=== PATIENT | female | born 1985 | race Caucasian/White ===

== ENCOUNTER 2017-11-10 15:10 | Emergency (ER) | payer OTHER ==
[~2017-11-10] VITALS: Ht 152.4 cm; Wt 53.5 kg
[~2017-11-10 15:10] MED LIST: PRENATAL VITAM1 EACH PO
== END 2017-11-10 15:33 | disposition home or self-care (01) ==
LOC: ED 15:10
DX: T25.121A Burn of first degree of right foot, initial encounter (principal); T31.0 Burns involving less than 10% of body surface; X19.XXXA Contact with other heat and hot substances, initial encounter

== ENCOUNTER 2018-06-30 10:47 | Emergency (ER) | payer SELFPAY ==
[~2018-06-30] VITALS: Ht 152.4 cm; Wt 53.5 kg
== END 2018-06-30 10:59 | disposition home or self-care (01) ==
LOC: ED 10:47
DX: J02.9 Acute pharyngitis, unspecified (principal); M54.5 Low back pain; R50.9 Fever, unspecified

== ENCOUNTER 2022-01-11 09:11 | Emergency (ER) | payer OTHER ==
[~2022-01-11] VITALS: Ht 152.4 cm; Wt 53.5 kg
[2022-01-11] MEDS ORDERED: ONDANSETRON ODT8 MG PO (10:22)
[2022-01-11] MEDS ORDERED: CEPHALEXIN500 M1 PO (10:22)
[2022-01-11] MEDS ORDERED: HYDROCODON-ACE1 EA11 PO (10:22)
== END 2022-01-11 11:40 | disposition home or self-care (01) ==
LOC: ED 09:11
DX: S67.22XA Crushing injury of left hand, initial encounter (principal); S62.522A Displaced fracture of distal phalanx of left thumb, initial encounter for closed fracture; S61.213A Laceration without foreign body of left middle finger without damage to nail, initial encounter; F17.200 Nicotine dependence, unspecified, uncomplicated; W23.0XXA Caught, crushed, jammed, or pinched between moving objects, initial encounter
CPT/HCPCS: 12002; 73130; 90471; 90715; 99283-25; J0690; J1170; J1885

== ENCOUNTER 2024-04-26 05:53 | Day surgery (SDC) | payer OTHER ==
[~2024-04-26] VITALS: Ht 152.4 cm; Wt 62.7 kg
[~2024-04-26 05:53] MED LIST changes: +CEPHALEXIN500 M1 PO; +HYDROCODON-ACE1 EA11 PO; +LACTATED RINGER'S 1,000 ML IV SCH; +LAMICTAL25 MG PO; +ONDANSETRON ODT8 MG PO; +SEROQUEL100 MG PO
[2024-04-26 06:08] VITALS: BP 116/72
[2024-04-26] MEDS ORDERED: KETOROLAC TROMETHAMINE 30 MG/ML VIAL ONE (06:31)
[2024-04-26] MEDS ORDERED: ROCURONIUM BROMIDE 50 MG/5 ML SYR ONE (06:31)
[2024-04-26] MEDS ORDERED: SUCCINYLCHOLINE IN 0.9% NACL 200 MG/10 ML SYRINGE ONE (06:31)
[2024-04-26] MEDS ORDERED: LIDOCAINE HCL 4% 5 ML AMP ONE (06:31)
[2024-04-26] MEDS ORDERED: METOCLOPRAMIDE HCL 10 MG/2 ML SDV ONE (06:31)
[2024-04-26] MEDS ORDERED: LACTATED RINGER'S 1,000 ML IV ONE ×2 (06:31→09:00)
[2024-04-26] MEDS ORDERED: FAMOTIDINE 20 MG/ 2 ML VIAL ONE (06:31)
[2024-04-26] MEDS ORDERED: ondansetron HCL 4 MG/2 ML VIAL ONE (06:31)
[2024-04-26] MEDS ORDERED: propofoL 200 MG/20 ML VIAL ONE (06:31)
[2024-04-26] MEDS ORDERED: MIDAZOLAM HCL 2 MG/2 ML VIAL ONE (06:31)
[2024-04-26] MEDS ORDERED: fentaNYL citrate 100 MCG/2 ML VIAL ONE (06:31)
[2024-04-26] MEDS ORDERED: SUGAMMADEX SODIUM 200 MG/2 ML ML ONE (06:31)
[2024-04-26] MEDS ORDERED: DEXAMETHASONE SOD PHOS 4 MG/ML VIAL ONE (06:31)
[2024-04-26] MEDS ORDERED: IBLOOD GLUCOSE TEST STRIP 1 EA TEST VI PRN ×2 (07:00→08:30)
[2024-04-26] MEDS ORDERED: LIDOCAINE HCL 1% 5 ML SDV INJ ONE (07:00)
[2024-04-26] MEDS ORDERED: CEFAZOLIN SODIUM 2 GM/20 ML SYR IV SCH (07:00)
[2024-04-26] MEDS ORDERED: droPERidol 5 MG/2 ML VIAL ONE (08:00)
[2024-04-26] MEDS ORDERED: ACETAMINOPHEN 1,000 MG/100 ML VIAL ONE (08:01)
[2024-04-26] MEDS ORDERED: FLUORESCEIN SODIUM 500 MG/5 ML ML ONE (08:05)
[2024-04-26] MEDS ORDERED: KETAMINE in NS 50 MG/5 ML SYR ONE (08:05)
[2024-04-26] MEDS ORDERED: fentaNYL citrate 50 MCG/ML SDV IV PRN (08:30)
[2024-04-26] MEDS ORDERED: METOCLOPRAMIDE HCL 10 MG/2 ML SDV IV PRN ×2 (08:30→10:30)
[2024-04-26] MEDS ORDERED: ondansetron HCL 4 MG/2 ML VIAL IV PRN ×2 (08:30→10:30)
[2024-04-26] MEDS ORDERED: MORPHINE SULFATE 10 MG/ML VIAL IV PRN (08:30)
[2024-04-26] MEDS ORDERED: droPERidol 5 MG/2 ML VIAL IV PRN (08:30)
[2024-04-26] MEDS ORDERED: NALOXONE HCL 0.4 MG SYR IV PRN ×2 (08:30→10:30)
[2024-04-26] MEDS ORDERED: PROCHLORPERAZINE EDISYLATE 10 MG/2 ML VIAL IV PRN (08:30)
[2024-04-26] MEDS ORDERED: MEPERIDINE HCL 25 MG/1 ML VIAL ONE (10:17)
[2024-04-26] MEDS ORDERED: HYDROCODONE/ACETA 5/325 TAB PO PRN (10:30)
[2024-04-26] MEDS ORDERED: MAGNESIUM HYDROXIDE/AL HYDROX 30 ML CUP PO PRN (10:30)
[2024-04-26] MEDS ORDERED: OXYCODONE/APAP 5/325 TAB PO PRN (10:30)
[2024-04-26] MEDS ORDERED: FAMOTIDINE 20 MG TAB PO PRN (10:30)
[2024-04-26] MEDS ORDERED: SIMETHICONE 125 MG TABLET CHEWABLE PO PRN (10:30)
[2024-04-26] MEDS ORDERED: HYDROmorphone HCL 1 MG/ML SYR IV PRN (10:30)
--- NOTE | 2024-04-26 10:53 | NUR ---
04/26/24 1053 Amina De Leon 1013- PT ARRIVES TO THE PACU SHAKING WITH EYED OPENING AND CLOSING OFF AND ON AND MAKING SOME NOISES. THIS RN TRIES TO ORIENT THIS PT TO PACU. BREATHING IS EVEN AND UNLABORED AND PT IS ON 10L OF O2 VIA MASK. ALL MONITORS PUT IN PLACE. ABDOMEN IS SOFT AND NON DISTENEDED. SOME SHADOWING NOTED AT THE 3 SITES TO THE ABDOMEN, AND NO DRAINAGE FROM THE VAGINA. PT IS IN SEMIFOWLERS POSITION. TAXI DRIVER SUPERVISOR GIVES MEDICATION TO PT TO HELP WITH THE SHAKING. BLOOD PRESSUES ARE UNOBTAINABLE AT THIS TIME DO TO SHAKING. WILL CONTINUE TO MONITOR. PT EASILY FALLS BACK TO SLEEP WITH SOME BROW FURROWING NOTED. PT IS UNABLE TO ANSWER WHEN ASKED ABOUT PAIN AND NAUSEA. 1020- VSS. PT HAS STOPPED SHAKING AND IS RESTING WITH EYES CLOSED AND NO APPARENT DISTRESS. 1021- PT IS TURNED DOWN TO 6L OF O2 AND MAINTAINING HIGH 90S. 1038- O2 TURNED OFF AND PT IS MAINTAINING ABOVE 92%. PT IS ORIENTED TO PACU. PT DENIES PAIN AND NAUSEA. PT IS SLIGHTLY CONFUSED AND ASKING WHERE WE ARE. PT EDUCATED ABOUT PROCEDURE AND PLAN OF CARE. WILL CONTINUE TO MONITOR. 1048- PT REPORTS FEELING PAIN IN HER ABDOMEN. WHEN ASKED TO GIVE IT A NUMBER SHE IS UNABLE BUT REPORTS IT "UNCOMFORTABLE".
[2024-04-26 11:15] VITALS: BP 95/61
--- NOTE | 2024-04-26 11:20 | NUR ---
Patient returns to treatment room from PACU. report taken from GABRIELLA Huynh. Patient is still drowsy but wakes easily to verbal stimuli. patient reports some pain rating it a 3/10 and is tolerable. She also reports being slightly cold. warm air applied to patient. 3 surgical sites: RLQ, LLQ, and umbilicus with steri strips and bandaids to cover. scant amount of red drainage on all bandages. She denies nausea. vital signs obtained. Gaytan catheter still in placed. patient denies any needs at this time. bed in lowest position and call light within reach.
[2024-04-26 12:13] VITALS: BP 96/64
--- NOTE | 2024-04-26 12:14 | NUR ---
PT'S BOWENS IS REMOVED BY KOMAL DAVIS 10MLS PULLED OUT OF BOWENS BALLOON. THERE WAS APPROX. 75MLS OF NEON YELLOW URINE IN BOWENS BAG. PT REPORTS FEELING LIKE SHE NEEDS TO GO TO THE BATHROOM REALLY BAD - SHE IS EDUCATED THAT IS NORMAL AND SHOULD DISSIPATE NOW THAT THE BOWENS HAS BEEN REMOVED. SHE IS GIVEN CRACKERS TO SNACK ON. CALL LIGHT WITHIN REACH. NO ADDITIONAL NEEDS AT THIS TIME.
--- NOTE | 2024-04-26 12:32 | NUR ---
call light answered. crackers and juice provided. denies needs at this time, call light in reach
--- NOTE | 2024-04-26 12:57 | NUR ---
LE 1250: pt up to br sba. pt voided 100 ml of neon yellow urine. scant amount of blood on pad. pt back to bed. provided crackers and personal cell phone. call light in reach, bed in lowest position LE 1255: pt in bed resting. pain assessed. pt states "it is tolerable now". pt asked to score pain on a scale of 0 to 10. pt states "5 or 4". RN notified. pt notified that we will wait 45 minutes to ensure pain is well controlled. pt has no questions or concerns at this time. call light in reach, bed in lowest position KOMAL Perera, SRT
[2024-04-26] MEDS ORDERED: SIMETHICONE 125 MG TABLET CHEWABLE PO SCH (13:00)
[2024-04-26 13:40] VITALS: BP 105/69
--- NOTE | 2024-04-26 13:40 | NUR ---
vitals complete. pt stated pain is a "4/10". pt resting in bed. MD in room.
--- NOTE | 2024-04-26 14:00 | NUR ---
LE 1356: PT IS GIVEN VERBAL AND WRITTEN DC INSTRUCTIONS. SHE VERBALIZES UNDERSTANDING. SHE HAS NO QUESTIONS AT THIS TIME. LE 1400: PT IS TAKEN TO PERSONAL VEHICLE VIA WC BY KOMAL DAVIS
[2024-04-26] MEDS ORDERED: SEVOFLURANE 250 ML BTL INH ONE (16:22)
--- NOTE | 2024-04-30 10:26 | PATH ---
[facility] [address], [place] [address] Signed SPECIMEN(S): A UTERUS, CERVIX AND TUBES SPECIMEN SOURCE: A. UTERUS, CERVIX AND TUBES CLINICAL HISTORY: Severe dysmenorrhea, adenomyosis FINAL PATHOLOGIC DIAGNOSIS: Uterus with bilateral fallopian tubes, hysterectomy with bilateral salpingectomy: - Secretory phase endometrium; no hyperplasia or neoplasia identified - Adenomyosis - Cervix with no significant pathologic changes - Bilateral fallopian tubes with paratubal cysts BRP MICROSCOPIC EXAMINATION: Histologic sections of all submitted blocks are examined by light microscopy. These findings, together with the gross examination, support the pathologic diagnosis. GROSS DESCRIPTION: The specimen, labeled and designated "Brooke Rojas., uterus, cervix, right and left fallopian tube per requisition," is received in formalin and consists of a 123 g, 9.8 cm fundus to cervix, 6.4 cm cornu to cornu, 5.3 cm anterior to posterior uterus with detached bilateral fallopian tubes. The ovaries are absent. The serosal surfaces luna-pink and smooth with diffuse adhesions on the anterior aspect. The attached cervix measures 3 x 3 cm and has a 1 cm slitlike os. The endometrial canal measures 5 x 2 cm and has a luna-pink endometrium averaging 0.2 cm in thickness. The myometrium averages 1.8 cm in thickness and is luna-pink and trabecular. There are no discrete masses or polyps. The first arbitrarily designated fallopian tube measures 4.2 x 1.1 x 0.8 cm and has an attached fimbriated end. The serosal surface is pink-purple and smooth with multiple paratubal cyst averaging 0.1 cm in greatest dimension. The second arbitrarily designated fallopian tube measures 6 x 1 x 0.8 cm and has an attached fimbriated end. The serosal surface is pink-purple and smooth with multiple paratubal cysts averaging 0.1 cm in greatest dimension. The specimens PATIENT NAME: ANNY ROJAS PATHOLOGY DATE OF : 85 REPORT #: [id number] PHYSICIAN: JESSICA PATHOLOGY PCP: SHAHRZAD MANCILLA PA-C REPORT IS CONFIDENTIAL AND NOT TO BE RELEASED WITHOUT AUTHORIZATION [facility] [address], [place] [address] Signed are serially sectioned revealing a pinpoint lumen. Side Laster Tack sections are submitted as follows: Cassette Summary: (A1) anterior and posterior cervix (A2) anterior and posterior endomyometrium (A3) first fallopian tube, fimbriated ends totally embedded (A4) second fallopian tube, fimbriated ends totally embedded AA (under the direct supervision of a pathologist) The Gross Description was prepared using a voice recognition system. The report was reviewed for accuracy; however, sound-alike word errors, addition and/or deletions may occur. If there is any question about this report, please contact Client Services. ADDITIONAL NOTES: Immunohistochemical and/or in situ hybridization studies if performed in this case included appropriate positive controls that reacted as expected. This test was developed and its performance characteristics determined by [facility]. It has not been cleared or approved by the U.S. Food and Drug Administration. The FDA has determined that such clearance or approval is not necessary. This test is used for clinical purposes. It should not be regarded as investigational or for research. [facility] is certified under the Clinical Laboratory Improvement Amendments of 1988 (CLIA) as qualified to perform high complexity clinical laboratory testing. PERFORMING LABORATORY: Technical component was performed by [facility], [address] [place] [id number] (CLIA# [id number]). Professional interpretation was performed by [facility] [place], [address] [place] [address] (CLIA#: [id number]). Diagnostician: Murtaza Topete MD Pathologist Electronically Signed 04/30/2024 Copies: ~ PATIENT NAME: ANNY ROJAS PATHOLOGY DATE OF : 85 REPORT #: [id number] PHYSICIAN: JESSICA PATHOLOGY PCP: SHAHRZAD MANCILLA PA-C REPORT IS CONFIDENTIAL AND NOT TO BE RELEASED WITHOUT AUTHORIZATION
--- NOTE | 2024-05-21 13:29 | OR ---
[facility] [address] [place], [place] [address] Signed DATE OF OPERATION: 04/26/2024 SURGEON: Racheal Moralez DO PREOPERATIVE DIAGNOSES: 1. Dysmenorrhea. 2. Adenomyosis. POSTOPERATIVE DIAGNOSES: 1. Dysmenorrhea. 2. Adenomyosis. 3. Endometriosis of the colon and left pelvis. PROCEDURES PERFORMED: 1. Total laparoscopic hysterectomy. 2. Bilateral salpingectomy. 3. Cystoscopy. CHANNEL MANAGER: None. ANESTHESIA: General. ESTIMATED BLOOD LOSS: 25 mL. DRAINS: Gaytan to gravity. COMPLICATIONS: None. FINDINGS: Normal external genitalia with normal clitoris, urethral meatus, bilateral [place]'s, Bartholin's glands. Normal vagina and cervix. On laparoscopy, normal appearance of the liver. Status post bilateral tubal ligation, otherwise normal ovaries and tubes. The uterus appears normal. On laparoscopy, the significant endometriosis of the left pelvic sidewall and anterior surface of the sigmoid colon. Normal appearance of the appendix. Excellent hemostasis and apical support at the end of the procedure. Electronically Signed By: RACHEAL MORALEZ DO (JD) 05/21/24 1329 PATIENT NAME: ANNY ROJAS OPERATIVE REPORT DATE OF : 85 REPORT #: [id number] PHYSICIAN: RACHEAL MORALEZ DO (JD) PCP: SHAHRZAD MANCILLA PA-C REPORT IS CONFIDENTIAL AND NOT TO BE RELEASED WITHOUT AUTHORIZATION [facility] [address], [place] [address] Signed INDICATIONS: Mrs. Rojas is a very pleasant 39-year-old, G3, P3 female with a long history of heavy painful periods. Ultrasound demonstrated enlarged uterus with myometrial consistency suggestive of adenomyosis. She has failed conservative measures and desires definitive treatment with total laparoscopic hysterectomy. Risks, benefits, and alternatives were discussed in detail. The patient understands and wished to proceed with the procedure. DESCRIPTION OF PROCEDURE: The patient was taken the OR. A time-out was performed to confirm correct patient and correct procedure. General anesthesia was adequately established. The patient was prepped and draped in the dorsal lithotomy position with her feet in Yellofin stirrups. ICPs were on and running. The patient received Ancef 2 g preoperatively per SCIP protocol. No heparin was indicated. A weighted speculum was placed in the vagina and the anterior lip of the cervix was grasped with an Allis clamp. Cervix was gently dilated using Hegar dilators. A VCare uterine manipulator was placed without difficulty. A Gaytan catheter was inserted. The surgeon's gloves were changed. Attention was turned to the abdomen. Just below the umbilicus, the skin was infiltrated with 0.25% Marcaine with epinephrine and a curvilinear incision was made using a surgical scalpel. Incision was carried down to the fascia, which was grasped with hemostats, elevated, and entered sharply. Fascial incision was ligated superiorly and inferiorly with 0-Vicryl and the peritoneum was entered bluntly. Pneumoperitoneum was established after insertion of a Rasta operative port. An 8 mm expanding port was placed in the right lower quadrant under direct visualization without complication. A 5 mm pediatric physician assistant port was placed in the left lower quadrant under direct visualization. Survey of the abdomen and pelvis was performed, again demonstrating normal liver, uterus, and ovaries. Tubes are status post bilateral tubal ligation. There was endometriosis of the left pelvic sidewall, but more concerning over the anterior surface of the sigmoid colon. This was beyond the scope of treatment here at our critical access hospital. Decision was made to proceed with hysterectomy as scheduled. The left fallopian tube was grasped at the fimbriated end, elevated and divided along the mesosalpinx using LigaSure device. This was amputated at the cornu and sent to Pathology. The left uteroovarian ligament was fulgurated and divided with excellent hemostasis and the left round ligament was fulgurated and divided. The leaves of the broad ligament were dissected using LigaSure device and the bladder was pushed well below the vaginal cup. The posterior edges of the peritoneum were divided to the angle of the uterosacral ligament across the posterior edge of the vaginal cup. The process was repeated on the right with division of the fallopian tube, utero-ovarian ligament, round ligament, and division of the leaves of the broad ligament. At this point, the uterine vessels were identified, fulgurated and divided with excellent hemostasis on the right. There were identified, fulgurated, divided with excellent hemostasis on the left. Colpotomy was performed using Sonicision device, following the green edge of the Electronically Signed By: RACHEAL LEBRON) DO AUSTYN 05/21/24 1329 PATIENT NAME: ANNY ROJAS OPERATIVE REPORT DATE OF : [birth year] REPORT #: [id number] PHYSICIAN: RACHEAL MORALEZ) PCP: SHAHRZAD MANCILLA PA-C REPORT IS CONFIDENTIAL AND NOT TO BE RELEASED WITHOUT AUTHORIZATION [address] [address] Signed vaginal cup. The uterus was then delivered through the vagina and sent to Pathology for further evaluation. The colpotomy was repaired using Endo-stitch device with a running barbed suture with careful attention to incorporate the uterosacral ligaments bilaterally and the vaginal epithelium with each bite. The pelvis was then irrigated, found to be hemostatic with excellent apical support appreciated. Additional pictures of the endometriosis were taken in order to facilitate referral to an endometriosis specialist in the future if needed. Pneumoperitoneum was reduced. Trocars were removed and infraumbilical fascia was reapproximated using 0-Vicryl in a running nonlocked manner. Stay sutures were plicated to reinforce this closure. Skin was reapproximated using 3-0 Vicryl Rapide in a subcuticular stitch. The Gaytan was left in place and the patient was taken to the PACU in good and stable condition. Sponge, needle and instrument counts correct x2 at the end of the procedure. DO CHARLES Smith/REEL /[id number] Copies: ~ Electronically Signed By: RAHCEAL MORALEZ DO (JD) 05/21/24 1329 PATIENT NAME: ANNY ROJAS OPERATIVE REPORT DATE OF : 85 REPORT #: [id number] PHYSICIAN: RACHEAL MORALEZ (GUSTAVO) PCP: SHAHRZAD MANCILLA PA-C REPORT IS CONFIDENTIAL AND NOT TO BE RELEASED WITHOUT AUTHORIZATION
== END 2024-04-26 14:00 | disposition home or self-care (01) ==
LOC: DS 05:53
PROVIDERS: ATTEND Obstetrics & Gynecology
PROC: 0UT74ZZ Resection of Bilateral Fallopian Tubes, Percutaneous Endoscopic Approach (ICD-10-PCS; 2024-04-26)
PROC: 0UT94ZZ Resection of Uterus, Percutaneous Endoscopic Approach (ICD-10-PCS; principal; 2024-04-26 07:30)
DX: N80.03 Adenomyosis of the uterus (principal); N83.8 Other noninflammatory disorders of ovary, fallopian tube and broad ligament; F17.290 Nicotine dependence, other tobacco product, uncomplicated
CPT/HCPCS: 00840; 88307; J0131; J0330; J0690; J1100; J1790; J1885; J2175; J2250; J2405; J2704; J2765; J3010; J3490; J7121